=== PATIENT | female | born 1990 | race Caucasian/White ===

== ENCOUNTER → 2021-08-13 15:26 | Outpatient (CLI) | payer OTHER, SELFPAY ==
--- NOTE | ~2021-08-13 | US_ITS ---
US OB <= 14 weeks fetus DATE: 08/13/2021 15:47 INDICATION: age determination, viability confirmation TECHNIQUE: Real-time imaging and Doppler analysis COMPARISON: None FINDINGS: The uterus measures 12.2 cm dimension 7.5 cm AP and 8.8 cm transverse dimension. pole and yolk sac are identified. heart rate of 170 bpm. [place]-rump length averages 4.86 cm, consistent with 11 weeks 5 days +/- 1 week estimated gestational age with JANI of 02/27/2022, compared to 02/25/2022 by LMP. There is an 8 x 15 x 18 mm subchorionic hematoma. The ovaries are not visualized. No pelvic mass or abnormal pelvic fluid collection is detected. IMPRESSION: 8 x 15 x 18 mm subchorionic hematoma Estimated gestational age is 11 weeks 5 days +/- 1 week; JANI: 02/27/2022 Reviewed, dictated and finalized at [facility]. Reviewed, dictated and finalized at location A.
== END ==
PROVIDERS: Visit Provider Student in an Organized Health Care Education/Training Program
DX: O20.8 Other hemorrhage in early pregnancy (principal); Z3A.11 11 weeks gestation of pregnancy
CPT/HCPCS: 76801

== ENCOUNTER 2022-02-28 15:55 | Inpatient (IN) | payer OTHER, SELFPAY ==
[2022-02-28] VITALS (29 sets, daily range): BP systolic 89–119; BP diastolic 48–77; PULSE 61–108; TEMP 36.7; BMI 25.4
--- NOTE | 2022-02-28 15:55 | LDADM ---
This patient, Shania Ruth, was admitted to Labor/Delivery/Recovery 104 on 02/28/22 at 15:55. Plans for labor, pain management and were discussed with patient. Patient/family oriented to hospital policies and general routines including ID bracelet, bed and alarms, visiting hours, pain management, procedures, bathroom and other care routines, personal items, smoking policy, room service/diet and guest tray routines, infant security routines, and visiting hours. Patient/Family are encouraged to report perceived risks to care and to ask questions if they do not understand what they are told or what they should do. See OBIX for further documentation.
[2022-02-28 16:32] LABS: Basophils Percent Auto 0.2 % (0.2-1.2); Eosinophils Percent Auto 0.3 % (0-4.4); Immature Granulocyte Absolute 0.04 K/mm3 (0.00-0.031); Immature Granulocyte Percent A 0.4 % (0-0.5); Lymphocytes Absolute Auto 2.44 K/mm3 (0.9-3.2); Lymphocytes Percent Auto 26.8 % (18.3-44.2); Mean Corpuscular HGB Conc 34.2 g/dl (32-36); Mean Corpuscular Hemoglobin 33.6 pg (26-34); Mean Corpuscular Volume 98.2 fl (80-100); Mean Platelet Volume 9.6 fl (7.4-10.4); Monocytes Absolute Auto 0.7 K/mm3 (0.1-0.6); Monocytes Percent Auto 7.5 % (2.6-8.5); Neutrophils Absolute Auto 5.9 K/mm3 (1.3-6.7); Neutrophils Percent Auto 64.8 % (45.5-73.1); Platelet Count Result 203 k/mm3 (150-375); Red Blood Count 3.87 M/mm3 (4.2-5.4); White Blood Count 9.1 K/mm3 (4.5-10.0)
--- NOTE | 2022-02-28 17:10 | WPDANESEPP ---
Anes - Eval Pre Procedure Procedure: Labor epidural Date/Time: 02/28/22 17:10 Surgeon: Hortencia Preop Diagnosis: Abd pain with contractions Pre Op Diagnosis: induction Patient Data Age: 31 Gender: F Height: 1.78 m Weight: 80.5 kg Last Vital Signs Pulse 108 H 02/28/22 17:01 BP 95/66 L 02/28/22 17:01 O2 Del Method Room Air 02/28/22 16:47 Allergies Allergy/AdvReac Type Severity Reaction Status Date / Time No Known Allergies Allergy Verified 02/10/22 13:29 Home Medications Medication Instructions Recorded Confirmed Type prenat.vits,rogerio,xki-huir-muipk 1 tablet PO DAILY 08/07/21 History ferrous sulfate 325 mg (65 mg 325 mg PO DAILY 11/06/21 02/28/22 History iron) tablet (Feosol) cholecalciferol (vitamin D3) 50 50 mcg PO DAILY 02/10/22 02/28/22 History mcg (2,000 unit) capsule (Vitamin D3) valacyclovir 500 mg tablet 500 mg PO Q12H 02/10/22 02/28/22 History (Valtrex) Laboratory Tests 02/28/22 02/28/22 02/28/22 16:21 16:21 16:21 WBC 9.1 K/mm3 K/mm3 (4.5-10.0) RBC 3.87 M/mm3 L M/mm3 (4.2-5.4) Hgb 13.0 g/dL g/dL (12.0-15.0) Hct 38.0 % % (37.0-47.0) MCV 98.2 fl fl (80-100) MCH 33.6 pg pg (26-34) MCHC 34.2 g/dl g/dl (32-36) RDW 14.0 % % (11.5-14.5) Plt Count 203 k/mm3 k/mm3 (150-375) MPV 9.6 fl fl (7.4-10.4) Immature Gran % (Auto) 0.4 % % (0-0.5) Neut % (Auto) 64.8 % % (45.5-73.1) Lymph % (Auto) 26.8 % % (18.3-44.2) [place] % (Auto) 7.5 % % (2.6-8.5) Eos % (Auto) 0.3 % % (0-4.4) Baso % (Auto) 0.2 % % (0.2-1.2) Lymph # (Auto) 2.44 K/mm3 K/mm3 (0.9-3.2) [place] # (Auto) 0.7 K/mm3 H K/mm3 (0.1-0.6) Eos # (Auto) 0.0 K/mm3 K/mm3 (0-0.3) Baso # (Auto) 0.0 K/mm3 K/mm3 (0.0-0.1) Abs Immat Gran (auto) 0.04 K/mm3 H K/mm3 (0.00-0.031) Absolute Neuts (auto) 5.9 K/mm3 K/mm3 (1.3-6.7) Absolute Nucleated RBC 0.0 K/mm3 K/mm3 (0.0-0.012) Nucleated RBC % 0.0 % % (0.0-0.2) RPR Pending Blood Type O Positive Antibody Screen Pending Patient hx anesthesia problems: none Family hx anesthesia problems: none Results Review: All pre-operative results and documents have been reviewed as part of the pre-operative evaluation. [facility] Past Medical History Medical History (Updated 02/28/22 @ 17:12 by Bharat Smith CRNA) Anxiety and depression History of herpes genitalis History of vaginal delivery Overweight (BMI 25.0-29.9) Post depression and not yet delivered Surgical History Surgical History [place] teeth removed Family History Family History (Updated 02/10/22 @ 13:32 by Leyla Alanis RN) Grandparent Diabetes mellitus Heart disease Stomach cancer Social History Social History Smoking status: Never smoker Second hand tobacco smoke exposure: No Alcohol intake: former Alcohol use details: Not since Substance use: never Spiritual care concerns: No Exam Day of Procedure 02/28/22 17:10 Patient weight: normal Airway: Mallampati scale class II
[2022-02-28] MEDS: miSOPROStol 25 MCG TABLET VAGINAL ×2 (17:18→21:59)
[2022-03-01] VITALS (155 sets, daily range): BP systolic 67–151; BP diastolic 30–87; PULSE 59–195; RESP 16; TEMP 36.1–37.2; O2SAT 85–100
[2022-03-01] MEDS: LACTATED RINGERS 1,000 ML 125 ML IV CONT ×3 (02:29→06:50)
[2022-03-01] MEDS: OXYTOCIN 30 UNITS/NS 500 ML 30 UNITS/500 ML BAG IV CONT (02:30)
[2022-03-01] MEDS: ePHEDrine sulfate INJ 50 MG/ML AMPUL IV PUSH (05:32)
--- NOTE | 2022-03-01 07:33 | WPDOBADMIT ---
Obstetrics - Admit Note Admission Note: record reviewed. No pertinent additions to the history and/or any subsequent changes in the physical findings that are not consistent with the expected course of the were found. Additions to the history and/or subsequent changes in the physical findings follow. None.
--- NOTE | 2022-03-01 07:46 | PM.OBPNLAB ---
Pain Control Date/time seen: 03/01/22 07:30 Pain control: tolerating well and epidural Pelvic Exam Dilation (cm): 8 Effacement (%): 90 station: 0 Contractions Monitor mode: External Contraction frequency: 3 (2-3.5) Contraction duration: 60 (60-80) Contraction pattern: Regular (coupling) Contraction phase: Contraction Contraction intensity: Strong/Firm Status status: Category ll Assessment and Plan Pitocin rate (mU/min): 8 Assessment: induction ongoing Plan: continuous present management Comments: Recommend frequent maternal repositioning. Anticipate vaginal .
[2022-03-01 08:29] LABS: Rapid Plasma Reagin Non-Reactive (NonReactive)
[2022-03-01] MEDS: METHYLERGONOVINE MALEATE 0.2 MG/ML VIAL IM (09:25)
[2022-03-01] MEDS: miSOPROStol 200 MCG TABLET 800 MCG RECTAL (09:37)
[2022-03-01] MEDS: OXYTOCIN 30 UNITS/NS 500 ML 30 UNITS/500 ML BAG 125 UNITS IV CONT ×2 (09:43→10:37)
[2022-03-01] MEDS: SODIUM CHLORIDE 0.9% IV 1,000 ML 999 ML IV CONT (09:55)
[2022-03-01] MEDS: TRANEXAMIC ACID 1,000MG/ISO100 1,000 MG/100 ML BAG 200 MG IVPB (09:55)
[2022-03-01] MEDS: OXYTOCIN 30 UNITS/NS 500 ML 30 UNITS/500 ML BAG 999 UNITS IV CONT (10:08)
[2022-03-01] MEDS: ceFAZolin 2 GM/D5W 50 ML 2 GM/50 ML BAG IVPB (10:20)
--- NOTE | 2022-03-01 10:33 | P.PCNOB_ITS ---
OB - Delivery Note Procedure Delivery date: 03/01/22 Procedure: Events: Elective Induction of Labor Induction method: Per Misoprostol Protocol and Per Pitocin Protocol Delivery augmentation: Pitocin Delivery monitor: External FHT and External Uterine Route of delivery: Episiotomy description: None Laceration Description: Perineal - 2nd Degree Delivery repair: vicryl Specimen: No Quantitative Blood Loss (ml): 1,785 Anesthesia type: Epidural Disposition: Floor Complications: hemorrhage. Narrative: Auto Rental Supervisor called for delivery. Patient complete and +2 station. Began pushing with contractions and made steady progress to . Patient delivered the head and there was excellent restitution followed by the delivery of the remainder of the body. The was placed on the maternal abdomen.The cord was clamped and cut after about 90 seconds of life. There was spontaneous delivery of the placenta in the [place] presentation. A second- degree perineal laceration was repaired in the usual fashion. The fundus remained firm but there were intermittent gushes of blood noted. A bimanual exam revealed a few clots in the lower uterine segment. These were manually removed. The vagina and cervix were thoroughly inspected and no additional lacerations were noted. Fundal massage continued and vaginal bleeding was brisk with clots. IM Methergine and [place] Cytotec were given. TXA was Also given. Dr. Burnett was called to the bedside. examined the vaginal vault, cervix, and uterus. No additional repairs were made. There was adequate hemostasis at this point. Baby Date of : 03/01/22 Time of : 09:14 Weeks of gestation at delivery: 40 Infant gender: Female Weight (pounds): 7 Weight (ounces): 8 presentation: vertex position: Right Occiput Anterior Placenta delivery description: Spontaneous Cord Vessel Description: 3 Vessels score one minute: 9 score five minutes: 9
[2022-03-01 10:34] LABS: Basophils Percent Auto 0.2 % (0.2-1.2); Hematocrit 37.7 % (37.0-47.0); Hemoglobin 12.7 g/dL (12.0-15.0); Immature Granulocyte Absolute 0.05 K/mm3 (0.00-0.031); Immature Granulocyte Percent A 0.4 % (0-0.5); Lymphocytes Absolute Auto 1.55 K/mm3 (0.9-3.2); Lymphocytes Percent Auto 11.8 % (18.3-44.2); Mean Corpuscular HGB Conc 33.7 g/dl (32-36); Mean Corpuscular Hemoglobin 33.2 pg (26-34); Mean Corpuscular Volume 98.7 fl (80-100); Mean Platelet Volume 9.6 fl (7.4-10.4); Monocytes Absolute Auto 0.7 K/mm3 (0.1-0.6); Monocytes Percent Auto 5.4 % (2.6-8.5); Neutrophils Absolute Auto 10.8 K/mm3 (1.3-6.7); Neutrophils Percent Auto 82.2 % (45.5-73.1); Platelet Count Result 174 k/mm3 (150-375); Red Blood Count 3.82 M/mm3 (4.2-5.4); Red Cell Distribution Width 13.8 % (11.5-14.5); White Blood Count 13.2 K/mm3 (4.5-10.0)
[2022-03-01 10:46] LABS: INR 1.1; Prothrombin Time 13.4 Seconds (11.1-14.7)
[2022-03-01 10:48] LABS: Fibrinogen 310 mg/dl (215-510); Partial Thromboplastin Time 27.2 SECONDS (22.3-36.8)
--- NOTE | 2022-03-01 10:53 | PM.OBDSVD ---
DS: Admitting Diagnosis Discharge Date 03/03/22 Admitting Diagnosis Induction of labor Anemia-resolved HSV2 Anxiety Resolved IUGR DS: Discharge Diagnosis Discharge Diagnosis (1) History of herpes genitalis: Code(s): Z86.19 - Personal history of other infectious and parasitic diseases Status: Acute (2) Mother currently breast-feeding: Code(s): Z39.1 - Encounter for care and examination of lactating mother Status: Acute (3) (normal spontaneous vaginal delivery): Code(s): O80 - Encounter for full-term uncomplicated delivery Status: Acute (4) hemorrhage: Code(s): O72.1 - Other immediate hemorrhage Status: Acute OB - DS: Summary Hospital Course Hospital Course: Complicated by hemorrhage OB Procedures : Ultrasound OB Procedures Intrapartum: Spontaneous Vag Delivery and Other (PPH) OB Procedures: : None Peripartum Data Infant Delivery Method: Natural Vaginal Laceration Description: Perineal - 2nd Degree Episiotomy description: None complications: other (hemorrhage) Status at Discharge Functional status at discharge: independent ambulation Overall status at discharge: patient is progressing back to baseline Time Spent with Patient Time attestation: Total time spent providing and/or coordinating discharge services: Exam Narrative: Alert and oriented. Mood is pleasant and cooperative. Urinating without difficulty. Denies passing any large clots. Perineum with minimal edema. Const: General: healthy appearing, no acute distress and alert Orientation/consciousness: patient oriented x3 Limitations: no limitations Resp: Effort & Inspection: normal respiratory effort Auscultation: clear to auscultation bilaterally Cardio: Rate: regular rate GI: Inspection: normal to inspection Neuro: General: patient oriented x3 Extrem: General: normal to inspection Psych: Appearance: grossly normal Mental Status: mental status grossly normal Affect: normal affect Thought process: Normal thought process present DS: Data Data Completed and Pending Labs on day of discharge: Labs from last 24 hours 03/01/22 03/01/22 02/28/22 10:27 10:27 16:21 WBC 13.2 H RBC 3.82 L Hgb 12.7 Hct 37.7 MCV 98.7 MCH 33.2 MCHC 33.7 RDW 13.8 Plt Count 174 MPV 9.6 Immature Gran % (Auto) 0.4 Neut % (Auto) 82.2 H Lymph % (Auto) 11.8 L [place] % (Auto) 5.4 Eos % (Auto) 0.0 Baso % (Auto) 0.2 Lymph # (Auto) 1.55 [place] # (Auto) 0.7 H Eos # (Auto) 0.0 Baso # (Auto) 0.0 Abs Immat Gran (auto) 0.05 H Absolute Neuts (auto) 10.8 H Absolute Nucleated RBC 0.0 Nucleated RBC % 0.0 PT Pending INR Pending APTT Pending Fibrinogen Pending D-Dimer Pending RPR Blood Type O Positive Antibody Screen Negative 02/28/22 02/28/22 16:21 16:21 WBC 9.1 RBC 3.87 L Hgb 13.0 Hct 38.0 MCV 98.2 MCH 33.6 MCHC 34.2 RDW 14.0 Plt Count 203 MPV 9.6 Immature Gran % (Auto) 0.4 Neut % (Auto) 64.8 Lymph % (Auto) 26.8 [place] % (Auto) 7.5 Eos % (Auto) 0.3 Baso % (Auto) 0.2 Lymph # (Auto) 2.44 [place] # (Auto) 0.7 H Eos # (Auto) 0.0 Baso # (Auto) 0.0 Abs Immat Gran (auto) 0.04 H Absolute Neuts (auto) 5.9 Absolute Nucleated RBC 0.0 Nucleated RBC % 0.0 PT INR APTT Fibrinogen D-Dimer RPR Non-reactive Blood Type Antibody Screen Discharge Plan Discharge Attending physician on discharge: Layla Burnett Discharging Clinician: Rayne Reyes Anticipated Discharge Date/Time: 03/01/22 10:55 Patient Disposition: Home, Self-Care Activity: may shower Diet: as tolerated and regular Patient Instructions: Antibiotic Form Stand Alone Forms: General Discharge Information Follow-up/Referrals: Rayne Reyes, YAIMA [Certified Nurse Curing Supervisor] - (6 week visit
[2022-03-01 11:10] LABS: D Dimer 2.66 ug/mL (<0.48)
[2022-03-01] MEDS: LACTATED RINGERS 1,000 ML 125 ML IVPB (11:23)
--- NOTE | 2022-03-01 14:31 | OBPPTRN ---
1356 Patient transferred to post room #291 via W/C. Support person present. Oriented to unit, room, information board, rooming in, admission packet and security measures. Patient verbalizes understanding.
[2022-03-01] MEDS: METHYLERGONOVINE MALEATE 0.2 MG TABLET PO ×2 (15:29→21:53)
[2022-03-01 17:16] LABS: Basophils Percent Auto 0.2 % (0.2-1.2); Eosinophils Percent Auto 0.1 % (0-4.4); Hematocrit 34.6 % (37.0-47.0); Hemoglobin 11.7 g/dL (12.0-15.0); Immature Granulocyte Absolute 0.05 K/mm3 (0.00-0.031); Immature Granulocyte Percent A 0.4 % (0-0.5); Lymphocytes Absolute Auto 1.83 K/mm3 (0.9-3.2); Mean Corpuscular HGB Conc 33.8 g/dl (32-36); Mean Corpuscular Hemoglobin 33.7 pg (26-34); Mean Corpuscular Volume 99.7 fl (80-100); Mean Platelet Volume 9.6 fl (7.4-10.4); Monocytes Absolute Auto 0.8 K/mm3 (0.1-0.6); Monocytes Percent Auto 6.2 % (2.6-8.5); Neutrophils Absolute Auto 10.3 K/mm3 (1.3-6.7); Neutrophils Percent Auto 79.1 % (45.5-73.1); Platelet Count Result 155 k/mm3 (150-375); Red Blood Count 3.47 M/mm3 (4.2-5.4); Red Cell Distribution Width 13.7 % (11.5-14.5); White Blood Count 13.1 K/mm3 (4.5-10.0)
[2022-03-01] MEDS: IBUPROFEN 600 MG TABLET PO (19:42)
[2022-03-02 01:12] VITALS: BP 98/61; PULSE 62; RESP 16; TEMP 36.7; O2SAT 98
[2022-03-02 04:40] VITALS: BP 99/62; PULSE 68; RESP 16; TEMP 36.9; O2SAT 97
[2022-03-02] MEDS: METHYLERGONOVINE MALEATE 0.2 MG TABLET PO ×2 (04:45→11:06)
[2022-03-02 06:32] LABS: Basophils Percent Auto 0.3 % (0.2-1.2); Eosinophils Absolute Auto 0.1 K/mm3 (0-0.3); Eosinophils Percent Auto 0.5 % (0-4.4); Hematocrit 33.1 % (37.0-47.0); Immature Granulocyte Absolute 0.03 K/mm3 (0.00-0.031); Immature Granulocyte Percent A 0.3 % (0-0.5); Lymphocytes Absolute Auto 2.27 K/mm3 (0.9-3.2); Lymphocytes Percent Auto 24.4 % (18.3-44.2); Mean Corpuscular HGB Conc 33.2 g/dl (32-36); Mean Corpuscular Hemoglobin 33.2 pg (26-34); Mean Platelet Volume 10.1 fl (7.4-10.4); Monocytes Absolute Auto 0.7 K/mm3 (0.1-0.6); Monocytes Percent Auto 7.2 % (2.6-8.5); Neutrophils Absolute Auto 6.3 K/mm3 (1.3-6.7); Neutrophils Percent Auto 67.3 % (45.5-73.1); Platelet Count Result 164 k/mm3 (150-375); Red Blood Count 3.31 M/mm3 (4.2-5.4); Red Cell Distribution Width 13.7 % (11.5-14.5); White Blood Count 9.3 K/mm3 (4.5-10.0)
[2022-03-02 08:30] VITALS: BP 106/67; PULSE 72; RESP 16; TEMP 36.6; O2SAT 100
--- NOTE | 2022-03-02 08:41 | WPDANLDPN2 ---
Anes-Prog Note L&D Date/Time: 03/02/22 08:41 Comfortable throughout: labor and delivery Neuraxial method: epidural Epidural/Spinal procedure site: clean & non-tender Neuro status: Neuro function grossly intact. Cardiovascular status: normal Respiratory status: normal Airway patency: baseline Mental status: baseline Post-Op hydration status: normal Vital Signs: Last Vital Signs Temp 36.9 C 03/02/22 04:40 Pulse 68 03/02/22 04:40 Resp 16 03/02/22 04:40 BP 99/62 L 03/02/22 04:40 Pulse Ox 97 03/02/22 04:40 O2 Del Method Room Air 03/01/22 19:50 Pain score (VAS): 2/10 Post-procedural complaints: none Patient feedback: Patient satisfied with anesthetic care.
--- NOTE | 2022-03-02 09:17 | PC.NURSE ---
[id number] Consulted with mother to check in to see how her experience has been so far and make a plan for the day. Father of baby is present. Infant is not latching effectively yet but makes efforts according to mother. Mother chooses to continue to hand express colostrum and feed it to her infant. Mother voiced having almost 4 teaspoons for her infant at 0815. Mother plans to use her electric pump at home and try bottle feeding but is fine with spoon feeding and attempting to breastfeed for now. Mother voiced understanding to call if her doesn't wake to feed or if she would like assistance attempting to latch her infant today. Reported to primary RN.
--- NOTE | 2022-03-02 10:45 | P.PNOB_ITS ---
OB - PN: Subj Subjective Date/time seen: 03/02/22 0800 Patient comments: pain well controlled baby status: doing well and other ( not latching well. Pt is hand expressing and spoon feeding baby. ) [place] feeding status: exclusively breast feeding OB - PN: Obj Data Labs CBC & Chem 7: 03/02/22 04:58 Labs: Laboratory Results - last 24 hr 03/01/22 03/01/22 03/02/22 10:27 17:03 04:58 WBC 13.1 H 9.3 RBC 3.47 L 3.31 L Hgb 11.7 L 11.0 L Hct 34.6 L 33.1 L MCV 99.7 100.0 MCH 33.7 33.2 MCHC 33.8 33.2 RDW 13.7 13.7 Plt Count 155 164 MPV 9.6 10.1 Immature Gran % (Auto) 0.4 0.3 Neut % (Auto) 79.1 H 67.3 Lymph % (Auto) 14.0 L 24.4 [place] % (Auto) 6.2 7.2 Eos % (Auto) 0.1 0.5 Baso % (Auto) 0.2 0.3 Lymph # (Auto) 1.83 2.27 [place] # (Auto) 0.8 H 0.7 H Eos # (Auto) 0.0 0.1 Baso # (Auto) 0.0 0.0 Abs Immat Gran (auto) 0.05 H 0.03 Absolute Neuts (auto) 10.3 H 6.3 Absolute Nucleated RBC 0.0 0.0 Nucleated RBC % 0.0 0.0 PT 13.4 INR 1.1 APTT 27.2 Fibrinogen 310 D-Dimer 2.66 H OB - PN A/P Plan day: 1 Plan: discharge home Comments: Pt strongly desires discharge home. Time Spent With Patient Time: Total time spent is greater than 50% in coordination of care (as documented) at patient's floor/unit and/or counseling patient: Time with patient: 15 - 25 minutes Review of Systems Review of Systems: All systems reviewed & are unremarkable except as noted in HPI and below Exam Narrative: Alert and oriented. Mood is pleasant and cooperative. Urinating without difficulty. Denies passing any large clots. Perineum with minimal edema. Const: General: healthy appearing, no acute distress and alert Orientation/consciousness: patient oriented x3 Limitations: no limitations Resp: Effort & Inspection: normal respiratory effort Auscultation: clear to auscultation bilaterally Cardio: Rate: regular rate GI: Inspection: normal to inspection Neuro: General: patient oriented x3 Extrem: General: normal to inspection Psych: Appearance: grossly normal Mental Status: mental status grossly normal Affect: normal affect Thought process: Normal thought process present
[2022-03-02] MEDS: IBUPROFEN 600 MG TABLET PO (12:27)
--- NOTE | 2022-03-02 15:52 | PC.NURSE ---
1520 - Mother led the conversation with her experience and plan to feed her so far and her ability to feed her infant. Mother states she will continue to attempt to breastfeed her , if infant doesn't latch she will hand express and spoon feed her . Reminded parents to use good handwashing technique to prevent infection. Mother is feeding appropriately for growth of and understands stimulating to eat if needed. Infant has had appropriate feedings in the last 24 hours meets the outcomes for weight, output and jaundice at this time. Mother states she is confident to continue feeding her at home, declines formula, plans to initiate pumping at home and bottle feed with breast milk understanding when to call for assistance, and any need for additional assistance or education at this time. Reinforced understanding of milk production (as it could be delayed from her blood loss), transition of milk, signs of adequate intake, prevention/relief of engorgement, responsive after visualizing feeding cues, the different methods of stimulating infant to breastfeed 2-3 hours after the start of the last feeding, community resources, medication information reviewed per [employer] and when to call a provider using the resource of the mom and baby guide/[facility] website. Mother voiced understanding of the education shared. Reported to the primary RN.
--- NOTE | 2022-03-02 20:30 | PC.NURSE ---
1500 Patient was given the opportunity to view the discharge video Mother & Baby Care, The First Two Weeks and to ask questions. Patient declined viewing the video and has been given the mother/baby guide for home reference.
[2022-03-03 10:06] VITALS: BP 110/63; PULSE 88; RESP 20; TEMP 37; O2SAT 99
== END 2022-03-02 17:19 | disposition home or self-care (01) | DRG 806 ==
LOC: ANHLDR 03-01 10:56 → ANHOB2 03-01 14:02
PROVIDERS: Advanced Practice Midwife; Admitting Provider Obstetrics & Gynecology Gynecology; Visit Provider Obstetrics & Gynecology Gynecology
DX: O98.32 Other infections with a predominantly sexual mode of transmission complicating childbirth (principal); O72.1 Other immediate postpartum hemorrhage; Z37.0 Single live birth; Z3A.40 40 weeks gestation of pregnancy; A60.09 Herpesviral infection of other urogenital tract; O36.8330 Maternal care for abnormalities of the fetal heart rate or rhythm, third trimester, not applicable or unspecified; O70.1 Second degree perineal laceration during delivery
CPT/HCPCS: 36415; 85025; 85380; 85384; 85610; 85730; 86592; 86850; 86900; 86901; A9270; J0690; J2210; J2590; J2795; J7030; J7120

== ENCOUNTER 2023-08-02 15:39 | Outpatient (CLI) | payer OTHER, SELFPAY ==
--- NOTE | ~2023-08-02 | US_ITS ---
EXAMINATION: US soft tissue pelvic DATE: 08/02/2023 16:50 INDICATION: Pelvic mass. TECHNIQUE: Multiple transabdominal sonographic images of the pelvis were obtained. COMPARISON: None. FINDINGS: In the patient's area of concern in the anterior pelvis, there is a 1.0 x 0.2 x 0.6 cm hypoechoic sub cutaneous mass. IMPRESSION: 1. 1.0 cm hypoechoic subcutaneous mass in the anterior pelvis. This finding is nonspecific and may be inflammation, scarring, a normal lymph node, peripheral nerve sheath tumor, or other benign mass. Reviewed, dictated and finalized at location A.
== END 2023-08-02 15:40 | disposition home or self-care (01) ==
PROVIDERS: Visit Provider Nurse Practitioner
DX: R19.09 Other intra-abdominal and pelvic swelling, mass and lump (principal)
CPT/HCPCS: 76857

== ENCOUNTER 2023-12-08 16:15 | Outpatient (CLI) | payer OTHER, SELFPAY ==
--- NOTE | ~2023-12-08 | US_ITS ---
Pelvic ultrasound. Clinical History: First trimester , assess for dates and viability Technique: Realtime transabdominal and transvaginal scanning of the pelvis was performed. Color flow Doppler and Doppler spectral analysis were performed. Findings: The uterus is anteverted, and contains an intrauterine gestation.. Placenta anteriorly loca rufina. [place]-rump length of 5.7 cm corresponds to an estimated gestational age of 12 weeks 2 days. Feta l heart rate is 161 bpm. Neither ovary seen. No adnexal mass seen. There is no evidence of free fluid in the cul de sac. Impression: Live intrauterine gestation, with estimated gestational age of 12 weeks 2 days. heart rate is 1 61 bpm. Reviewed, dictated and finalized at location . Impression: Live intrauterine gestation, with estimated gestational age of 12 weeks 2 days. heart rate is 161 bpm.
== END 2023-12-08 16:16 | disposition home or self-care (01) ==
PROVIDERS: Visit Provider Advanced Practice Midwife
DX: O36.80X0 Pregnancy with inconclusive fetal viability, not applicable or unspecified (principal); Z3A.00 Weeks of gestation of pregnancy not specified
CPT/HCPCS: 76801

== ENCOUNTER 2024-02-01 09:16 | Outpatient (CLI) | payer OTHER, SELFPAY ==
--- NOTE | ~2024-02-01 | US_ITS ---
EXAMINATION: US OB /maternal detail DATE: 02/01/2024 11:18 INDICATION: anatomic survey. TECHNIQUE: Real-time ultrasound of the pelvis was performed. COMPARISON: Ultrasound 12/08/2023 FINDINGS: There is a single living fetus in variable presentation. The placenta is anterior. The cervical mati th is 3.6 cm on transabdominal images, which is normal. heart rate is 150 beats per minute (bpm ). The amniotic fluid index is 11.5 cm, which is normal. The following biometric data were obtained: Biparietal diameter (BPD): 4.4 cm; head circumference (HC): 17.3 cm; abdominal circumference (AC): 14 .5 cm; femur length (FL): 3.0 cm. These measurements are concordant. Estimated weight is 302 g +/- 45 g, which correlates with the 47th percentile when 06/23/24 is u sed as estimated date of delivery. As single measurements, these parameters are each equal to the following estimated gestational ages: BPD: 19 weeks 3 days. HC: 19 weeks 6 days. AC: 19 weeks 6 days. FL: 19 weeks 2 days. estimated gestational age based solely on measurements from this exam is 19 weeks 4 days +/- 1 weeks 3 days. The cerebral ventricles, cerebellum, cisterna magna, nuchal fold, lip, and spine are normal. The hear t is normal. The diaphragm, stomach, kidneys, and bladder are normal. There are two umbilical arterie s to yield a 3-vessel cord. The cord insertion is normal. IMPRESSION: 1. Single living fetus in variable presentation. 2. Estimated weight is 302 g +/- 45 g, which correlates with the 47th percentile when 06/23/24 is used as estimated date of delivery. 3. Normal anatomic survey. Reviewed, dictated and finalized at location A. IMPRESSION: 1. Single living fetus in variable presentation. 2. Estimated weight is 302 g +/- 45 g, which correlates with the 47th pe rcentile when 06/23/24 is used as estimated date of delivery. 3. Normal anatomic survey.
== END 2024-02-01 09:17 | disposition home or self-care (01) ==
LOC: ANHIMG 09:21
PROVIDERS: Visit Provider Advanced Practice Midwife
DX: Z36.9 Encounter for antenatal screening, unspecified (principal); Z3A.19 19 weeks gestation of pregnancy
CPT/HCPCS: 76805

== ENCOUNTER 2024-07-01 01:29 | Inpatient (IN) | payer BC, SELFPAY ==
[2024-07-01] VITALS (13 sets, daily range): BP systolic 98–148; BP diastolic 48–95; PULSE 50–92; RESP 14–18; TEMP 36.2–37; O2SAT 97–100; BMI 25.9
--- OUTSIDE RECORDS SUMMARY | 2024-07-01 01:54 | XMS_ITS | Data Portability ---
Author Organization [facility] Address [address] [place] [address] [place] [address] Assessment Encounter Date Assessment Date Assessment LastModified by Organization Details LastModified Time 06/06/2024 06/06/2024 Patient is _37__weeks . Discussed plan. [email or web address] Not available 06/06/2024 11:37:37 06/20/2024 06/20/2024 Patient is _39__weeks . Discussed plan. Not available 06/20/2024 11:56:30 06/27/2024 06/27/2024 Patient is _40__weeks . Discussed plan. [email or web address] Not available 06/27/2024 12:30:20 Plan of Treatment Reminders Order Date Submit Date Provider Last Modified By Organization Details Last Modified Time Details Appointments U/S OB BPP 2024 12:30P M ULTRASOUND Not available Not available Not available NST 2024 01:00P M NST SCHEDULE Not available Not available Not available INDUCTI ON 2024 06:00A M Lulu Kenney CNM Not available Not available Not available Lab None recorde d. Referral None recorde d. Procedures None recorde d. Surgeries None recorde d. Imaging non-str ess test 2024 025 [email or web address] [address], [address], [place], [address], 06/29/2024 17:08:17 US, obstetr ic, biophys ical profile + non-str ess test 2024 025 [email or web address] [address], [address], [place], [address], 06/28/2024 00:29:06 Medication Orders None recorde d. Patient TargetsNo targets recorded. Patient InstructionsNo instructions recorded. Reason for Referral None Reported. Results Created Date Observation Date Name Description Value Unit Range Abnormal Flag Note LastModifiedBy Organization Detail LastModifiedTime 05/21/19 25 05/21/2024 CBC (HEMO GRAM) WBC 9.7 10'3/ uL 3.5-10 .5 Not Available [facility] (Lab) [address], [place], [address], 05/22/2024 03:53:46 05/21/19 25 05/21/2024 CBC (HEMO GRAM) RBC 3.85 10'6/ uL (based on docume nted legal sex) 3.80-5 .20 Not Available [facility] (Lab) [address], [place], [address], 05/22/2024 03:53:46 05/21/19 25 05/21/2024 CBC (HEMO GRAM) HGB 12.0 g/dL (based on docume nted legal sex) 11.6-1 5.4 Not Available [facility] (Lab) [address] [place], [address], 05/22/2024 03:53:46 05/21/19 25 05/21/2024 CBC (HEMO GRAM) HCT 36.5 % (based on docume nted legal sex) 34.0-4 5.0 Not Available [facility] (Lab) [address] [place], [address], 05/22/2024 03:53:46 05/21/19 25 05/21/2024 CBC (HEMO GRAM) MCV 94.8 fL 80.0-9 9.0 Not Available [facility] (Lab) [address] [place], [address], 05/22/2024 03:53:46 05/21/19 25 05/21/2024 CBC (HEMO GRAM) MCH 31.2 pg 27.0-3 4.0 Not Available [facility] (Lab) [address], [place], [address], 05/22/2024 03:53:46 05/21/19 25 05/21/2024 CBC (HEMO GRAM) MCHC 32.9 g/dL 32.0-3 5.5 Not Available [facility] (Lab) [address], [place], [address], 05/22/2024 03:53:46 05/21/19 25 05/21/2024 CBC (HEMO GRAM) RDW 13.8 % 11.0-1 5.0 Not Available [facility] (Lab) [address], [place], [address], 05/22/2024 03:53:46 05/21/19 25 05/21/2024 CBC (HEMO GRAM) plt 250 10'3/ uL 150-40 0 Not Available [facility] (Lab) [address], [place], [address], 05/22/2024 03:53:46 05/21/19 25 05/21/2024 CBC (HEMO GRAM) MPV 9.8 fL 8.8-12 .1 Refer ence range s for nonbi nary/ inter sex or unspe cifie d gende r patie nts have not been estab lishe d. [facility] for range s estab lishe d for cisge nder patie nts and evalu ate in the clini rogerio shyam xt of the indiv idual patie nt: [email or web address] :[email or web address] carl book. nm.or g/Gen derX Not Available [facility] (Lab) [address], [place], [address], 05/22/2024 03:53:46 05/21/19 25 05/21/2024 CT/GC AND TRICH OMONA S VAGIN SOFI (RRNA ), URINE chlamydia trachomatis, PCR Negati ve negati ve Not Available [facility] (Lab) [address], [place], [address], 05/24/2024 15:24:35 05/21/19 25 05/21/2024 CT/GC AND TRICH OMONA S VAGIN SOFI (RRNA ), URINE neisseria gonorrhoeae, PCR Negati ve negati ve Not Available [facility] (Lab) [address], [place], [address], 05/24/2024 15:24:35 05/21/19 25 05/21/2024 CT/GC AND TRICH OMONA S VAGIN SOFI (RRNA ), URINE trichomonas vaginalis ribosomal RNA (rrna) Negati ve negati ve Not Available [facility] (Lab) [address], [place], [address], 05/24/2024 15:24:35 05/21/19 25 05/21/2024 CULTU RE: URINE result report SEE RESULT S BELOW Test: Cultu re: Urine Speci men Sourc e: Urine - Clean Catch Speci men Type: Urine Speci men Date: 2024 1110 Resul t Date: 2024 0359 Resul t Statu s: Final resul t Abnor mal: No Resul ting Lab: [facility] [address] [facility] [address] Tel: CULTU RE ----- ----- ----- --- No growt h in 1 day (dete ction level of 10,00 0 colon ies / ml.) Not Available [facility] (Lab) [address], [place], [address], 05/24/2024 15:24:36 05/21/19 25 05/21/2024 CULTU RE: GROUP B STREP SCREE N, REFLE X SUSCE PTIBI LITY result report SEE RESULT S BELOW Test: Cultu re: Group B Strep , Refle x Susce ptibi lity ([facility] ) Speci men Sourc e: Vagin a/Rec demetris Speci men Type: Vagin al/Re ctal Speci men Date: 2024 1110 Resul t Date: 2024 1419 Resul t Statu s: Final resul t Abnor mal: No Resul ting Lab: [facility] [address] [facility] [address] Tel: CULTU RE ----- ----- ----- --- No Group B strep isola rufina at 2 days (saima ctive broth enhan cemen t) Not Available [facility] (Lab) [address], [place], [address], 05/24/2024 15:24:36 05/21/19 25 05/21/2024 drug scree n, urine Amphetamines : negati ve Not Available [facility] [address], [place], [address], 05/21/2024 11:46:51 05/21/19 25 05/21/2024 drug scree n, urine Cannabinoids : negati ve Not Available [facility] [address], [place], [address], 05/21/2024 11:46:51 05/21/19 25 05/21/2024 drug scree n, urine Cocaine: negati ve Not Available [facility] [address], [place], [address], 05/21/2024 11:46:51 05/21/19 25 05/21/2024 drug scree n, urine Opiates: negati ve Not Available [facility] [address], [place], [address], 05/21/2024 11:46:51 05/21/19 25 05/21/2024 drug scree n, urine Phenocyclidi ne: negati ve Not Available [facility] [address], [place], [address], 05/21/2024 11:46:51 05/21/19 25 05/21/2024 drug scree n, urine Barbiturates : negati ve Not Available [facility] [address], [place], [address], 05/21/2024 11:46:51 05/21/19 25 05/21/2024 drug scree n, urine Benzodiazepi hang: negati ve Not Available [facility] [address], [place], [address], 05/21/2024 11:46:51 05/21/19 25 05/21/2024 drug scree n, urine Ethanol: negati ve Not Available [facility] [address], [place], [address], 05/21/2024 11:46:51 05/21/19 25 05/21/2024 drug scree n, urine Hallucinogen s: negati ve Not Available [facility] [address], [place], [address], 05/21/2024 11:46:51 05/21/19 25 05/21/2024 drug scree n, urine Inhalants: negati ve Not Available [facility] [address], [place], [address], 05/21/2024 11:46:51 05/21/19 25 05/21/2024 drug scree n, urine Anabolic Steroids: negati ve Not Available [facility] [address], [place], [address], 05/21/2024 11:46:51 05/21/19 25 05/21/2024 drug scree n, urine Other: negati ve Not Available [facility] [address], [place], [address], 05/21/2024 11:46:51 06/27/19 25 06/27/2024 US, obste tric, bioph ysica l profi le + non-s tress test No observ ation record ed. [email or web address] [address], [place], [address], 06/27/2024 11:13:22 06/27/19 25 06/27/2024 US, obste tric, bioph ysica l profi le + non-s tress test No observ ation record ed. [email or web address] [address], [place], [address], 06/28/2024 01:14:31 06/29/1906/27/2024 non-s tress test No observ ation record ed. [email or web address] [address] [address], [place], [address], 06/29/2024 17:07:19 06/29/1906/27/2024 non-s tress test No observ ation record ed. [email or web address] Not Available 06/29 18:31:13 Result Notes None recorded. Problems Name Problem SNOMED Code Status Onset Date Resolution Date Notes Provider Name and Address Organization Details Recorded Time 05284156 Active 2024 Layla algeria, [facility] 11:37:48 Postpartu m hemorrhag e 79794624 Active X2, did not require transfusi on Conrad Villela MD [address], [place], [address], [facility] 5 12:00:06 Herpes simplex 01576261 Active 2024 Layla alegria, [facility] 11:00:09 Anxiety 48986674 Active Conrad Villela MD [address], [place], [address], [facility] 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 5 11:00:03 Herpes simplex 01388374 Active 2024 Layla alegria [facility] 5 11:00:09 Problem Notes None recorded. Procedures Surgical History Date Name Laterality Status Provider Name and Address Organization Details Recorded Time 3 Date of Last Pap Smear completed Layla Shirley [facility] 06/03/2024 14:23:53 1 extraction of wisdom tooth completed Laylarajinder Shirley [facility] 05/21/2024 11:43:16 Imaging Results Imaging Date Name Status LastModified by Organiz ation Details LastModified Time 06/27/2024 US, obstetric, biophysical profile + non-stress test completed [email or web address] [place] [address], [place], [address], 06/27/2024 11:13:22 06/27/2024 US, obstetric, biophysical profile + non-stress test active [email or web address] [address], [place], [address], 06/28/2024 01:14:31 06/27/2024 non-stress test completed [email or web address] [facility] [address], [place], [address], 06/29/2024 17:07:19 06/27/2024 non-stress test completed [email or web address] Informati on not available 06/29/2024 18:31:13 Procedure Notes None recorded. Medical Equipment None Reported. Allergies No known drug allergies Medications Name Sig Start Date Stop Date Status Note LastModified by Organization Details LastModified Time valacyclovir 500 mg tablet Take 1 tablet every day by oral route. active Not Available Not Available No t Available Vitals Date Recorded Body height Body mass index (BMI) Body weight Systolic blood pressure Diastolic blood pressure Provider Name and Address Organization Details Last Updated DateTime 06/06/2024 175.26 cm 27 kg/m2 48213.40 371 g 119 mm[Hg] 73 mm[Hg] Layla Shirley [facility] 10:59:08 Date Recorded Body height Body mass index (BMI) Body weight Systolic blood pressure Diastolic blood pressure Provider Name and Address Organization Details Last Updated DateTime 06/20/2024 175.26 cm 27.5 kg/m2 05591.18 082 g 111 mm[Hg] 68 mm[Hg] Layla Shirley [facility] 11:14:49 Date Recorded Body weight Body mass index (BMI) Body height Body height Body mass index (BMI) Body weight Systolic blood pressure Diastolic blood pressure Systolic blood pressure Diastolic blood pressure Provider Name and Address Organization Details Last Updated DateTime 58230.9 5793 g 27.9 kg/m2 175.26 cm 175.26 cm 27.9 kg/m2 23717.9 6 g 119 mm[Hg] 76 mm[Hg] 119 mm[Hg] 76 mm[Hg] Layla Shirley [facility] 17:04:32 Social History Question Answer Notes LastModified by Organizat ion Details LastModified Time Tobacco Smoking Status Never Smoker Layla Shirley [facility] 05/21/2024 11:42:57 Do You Have An Advance Directive? No [email or web address] Information not available 05/21/2024 What Is Your Level Of Alcohol Consumption? None [email or web address] Information not available 05/21/2024 If You Are , What Was Your Level Of Alcohol Consumption Prior To ? Occasional [email or web address] Information not available 05/21/2024 Are You Blind Or Do You Have Difficulty Seeing? No [email or web address] Information not available 05/21/2024 What Is Your Level Of Caffeine Consumption? Moderate Information not available 05/21/2024 How Much Tobacco Do You Chew? None [email or web address] Information not available 05/21/2024 In The 14 Days Before Symptom Onset, Have You Had Close Contact With A Laboratory-confir med COVID-19 While That Case Was Ill? No [email or web address] Information not available 05/21/2024 In The 14 Days Before Symptom Onset, Have You Had Close Contact With A Person Who Is Under Investigation For COVID-19 While That Person Was Ill? No [email or web address] Information not available 05/21/2024 Have You Been To An Area Known To Be High Risk For COVID-19? No [email or web address] Information not available 05/21/2024 Are You Deaf Or Do You Have Serious Difficulty Hearing? No [email or web address] Information not available 05/21/2024 What Type Of Diet Are You Following? REGULAR [email or web address] Information not available 05/21/2024 What Is The Highest Grade Or Level Of School You Have Completed Or The Highest Degree You Have Received? FN60002-2 [email or web address] Information not available 05/21/2024 What Is Your Occupation? Stay At Home Mom [email or web address] Information not available 05/21/2024 Are There Any Guns Present In Your Home? No [email or web address] Information not available 05/21/2024 Do You Use Protection During Sex? No [email or web address] Information not available 05/21/2024 Do You Use Your Seat Belt Or Car Seat Routinely? Yes [email or web address] Information not available 05/21/2024 Do You Have Smoke And Carbon Monoxide Detectors In Your Home? Yes [email or web address] Information not available 05/21/2024 How Much Tobacco Do You Smoke? No [email or web address] Information not available 05/21/2024 Do You Feel Stressed (tense, Restless, Nervous, Or Anxious, Or Unable To Sleep At Night)? [id number] Information not available 05/21/2024 Do You Use Any Illicit Or Recreational Drugs? No [email or web address] Information not available 05/21/2024 Do You Use Sunscreen Routinely? Yes [email or web address] Information not available 05/21/2024 Have You Used IV Drugs? No [email or web address] Information not available 05/21/2024 Do You Or Have You Ever Used Any Other Forms Of Tobacco Or Nicotine? No [email or web address] Information not available 05/21/2024 Sex: Unknown Functional Status Question Answer Note LastModified by Organizat ion Details LastModified Time Do you have difficulty walking or climbing stairs? No [email or web address] Information not available 05/21/2024 Are you able to walk? YESWOREST [email or web address] Information not available 05/21/2024 Are you able to care for yourself? Yes [email or web address] Information not available 05/21/2024 Do you have difficulty dressing or bathing? No [email or web address] Information not available 05/21/2024 What is your exercise level? Moderate [email or web address] Information not available 05/21/2024 Mental Status None recorded. Family History Relationship Description Onset Age of this Age Resolved Age Notes LastModified by Organization Details LastModified Time Unspecified Relation Family history unknown [email or web address] Not available 06/03 10:03:28 Paternal Grandmother Diabetes mellitus [email or web address] Not available 06/03 13:49:23 Paternal Grandmother Hypertensive disorder [email or web address] Not available 06/03 13:49:49 Paternal Grandfather Coronary arterioscler osis [email or web address] Not available 06/03 10:03:28 Paternal Grandfather Hypertensive disorder [email or web address] Not available 06/03 13:49:49 Maternal Uncle Malignant neoplastic disease [email or web address] Not available 06/03 13:50:31 Maternal Grandmother Malignant tumor of stomach [email or web address] Not available 06/03 10:03:28 Medical History Condition Response Allergies (Food, seasonal, environmental ) N Other N Drug/Latex Allergies/Reactions N Blood Transfusion N Breast Cancer N Dermatologic Disorders N Lung Disease N Defects or Inherited Disease N Breast Problem N Gestational Diabetes N Hematologic disorders N Anesthesia Complications N History of STI Y Deep Vein Thrombosis N Polycystic ovary syndrome N Anxiety Disorder Y Autoimmune disease N Arthritis N Polyps N Infertility N Acid Reflux (GERD) N History of abnormal pap Y Cancer N Varicosities N Stroke N Neurologic/Epilepsy N Endometriosis N High Cholesterol N Fibromyalgia N Headaches N Kidney Disease N Heart Problems N Thyroid Problems N Kidney or Bladder Problems N GI Problems N Eating Disorder N Anemia N Art (IVF or FET) N Psychiatric Illness N Ovarian Cancer N Diabetes N Pulmonary (TB, Asthma) N Hepatitis/Liver Disease N No Past Medical History N Eczema N Urinary Tract Infection N Abuse/Domestic Violence N Asthma N Trauma/Violence N Depression/ depression Y Heart Disease N Pre-Eclampsia N Hypertension N Osteoporosis N Thrombophilias N Gynecological History Statement/Question Response Abnormal Pap Y Date of Last Mammogram Date of LMP 09/17/2023 On BCP's at Conception? N N Was last menstrual period normal Y STIs/STDs Yes HPV Vaccine N Current Control Method Age at First Child 29 Date of Last Colonoscopy Sexually Active? Y Date of DEXA bone scan Age of first menstrual cycle 14 Date of Last Pap Smear 08/18/2022 Sexual Problems? N LMP Approximate N Obstetrics History GPAL:G 3 P 2 0 0 2 Type Value Full Term 2 Living 2 Total 3 Past Encounters Encounter ID Performer Location Encounter Start Date Encounter Closed Date Diagnosis/Indication Diagnosis SNOMED-CT Code Diagnosis ICD10 Code Diagnosis Note [id number] Conrad Villela MD [facility] [address] [address] 05/21/2024 10:51:00 05/21/2024 12:21:18 Gestation period, 35 weeks 84841247 Z3A.35 Routine an tenatal care 014528915 Z34.93 Venereal d isease screening 148927747 Z11.3 screening 2437 86990 Z36.9 Genital he rpes simplex 23587648 A60.9 [id number] Lulu Kenney CNM [facility] [address] [place] [address] 06/01/2024 10:04:54 06/01/2024 11:22:10 Gestation period, 36 weeks 36656043 Z3A.36 continue vitamin [id number] Lulu Kenney CNM [facility] [address],[place] [address] 06/06/2024 10:40:15 06/06/2024 11:42:12 Routine care 948664448 Z34.93 [id number] Lulu Kenney CNM [facility] [address],[place] [address] 06/20/2024 10:29:26 06/20/2024 12:28:43 Gestation period, 39 weeks 55917424 Z3A.39 [id number] Yari Rosenberg [facility] [address],[place] [address] 06/27/2024 10:00:55 06/27/2024 10:43:23 Post-term 84013206 O48.0 Z3A.40 [id number] Layla Shirley [facility] [address],[place] [address] 06/27/2024 10:02:50 06/29/2024 17:08:22 Post-term 93586625 O48.0 [id number] Lulu Kenney CNM [facility] [address],[place] [address] 06/27/2024 10:03:24 06/27/2024 14:01:59 Gestation period, 40 weeks 31050706 Z3A.40 Health Concerns Section Related Observation LastModified by Organization Detai ls LastModified Time None Recorded Concern Status LastModified by Organization Details LastModified Time None Recorded Advance Directives Directive N: Payers Encounter Date Sequence Insurance Name Policy Number Policy Acevedo Covered Member ID Acevedo Member ID Guarantor Name 06/06/2024 1 *SELF PAY* Gw en [employer] 06/20/2024 1 *SELF PAY* Gw en [employer] 06/27/2024 1 *SELF PAY* Gw en [employer] 06/27/2024 1 *SELF PAY* Gw en [employer] 06/27/2024 1 *SELF PAY* Gw en [place] OBGyn Episode Ob Episode Information Episode Created Date Number of Fetuses Patient Bloodtype Patient rh Status Prepregnancy Weight lbs Domestic Partner Domestic Partner Phone Father Name Machine Stonecutter Status 05/21/19 1 CLOSED Fetus Data First Name Last Name Admitted to NICU Weight (g) Sex Living Outcome Pediatric Complications Fetus ID Race Codes Race Delivery Type 3401.94 F Full Term [id number] Vaginal Delivery Asael Calculation Initial Asael Date Initial Exam Date Initial Exam Provider Initial Ultrasound Date Last Menstrual Period Date Ultra Sound Weeks Gestation 0 Eighteen To Twenty Week Asael Update Ultra Sound Date Fundal Height At Umbil Quickening Date Ultra Sound Latest Weeks Gestation Final Asael Confirmed By Final Asael Confirmed Date Final Asael Date Ultra Sound Latest Days Gestation 0 0 Menstrual History Last Menstrual Date Menses Monthly On Bcp Conception Prior Menses Frequency Hcg Plus Date Menarche Onset Age Delivery Information Delivery Date Delivery Type Labor Anesthesia Weeks Gestation Incision Type Labor Labor Length Hrs Delivered By Post Complications Tubal Sterilization Discharge Date Comments 2 40.2 hemorrha g e Discharge Information Feeding Method Contraceptive Method Maternal HG B and HCT Levels Ob Episode Information Episode Created Date Number of Fetuses Patient Bloodtype Patient rh Status Prepregnancy Weight lbs Domestic Partner Domestic Partner Phone Father Name Machine Stonecutter Status 05/21/19 25 1 O Positive 144 Azra Yarbrough OPEN Fetus Data First Name Last Name Admitted to NICU Weight (g) Sex Living Outcome Pediatric Complications Fetus ID Race Codes Race Delivery Type [id number] Problems Problem Notes Problem Name Start Date End Date Resolution Snomed Code Not e hemorrhage 40671730 X2, did not require transfusion Herpes simplex 06/06/2024 13203084 Anxiety 28582180 Asael Calculation Initial Asael Date Initial Exam Date Initial Exam Provider Initial Ultrasound Date Last Menstrual Period Date Ultra Sound Weeks Gestation 06/23/2024 12/19/2023 Dr wilson office 12/19/2023 09/17/2023 13 Eighteen To Twenty Week Asael Update Ultra Sound Date Fundal Height At Umbil Quickening Date Ultra Sound Latest Weeks Gestation Final Asael Confirmed By Final Asael Confirmed Date Final Asael Date Ultra Sound Latest Days Gestation 0 06/23/19 25 0 Pre- Flowsheet Flowsheet Date 05/21/2024 Irvin Score Blood Edema Fundus Height Fundus Units Glucose Ketones Leukocytes Nitrite Labor Signs Protein Cervic Dilation Cervic Effacement Cervic Station neg none none trace 1cm 30% -4 Type Weight in lbs Pre/Post Dialysis Refused Weight 184.597587255653 BP Diastolic BP Location Tested BP Systolic BP Type 67 113 Fetus Heart Rate Present Fetus Movement A Yes Comments this patient is a 33-year-ol d multiparous female at 35 weeks' gestation who presents for transfere of [facility] care. She has a history of term vaginal births. Her medical, surgical, obstetric history Includes hemorrhage x2, herpes, anxiety.. She is vaccinated. She was given precautions recommendations for . We talked about vaccines in , she has completed Tdap. Talked about care in detail. she will begin daily Valtrex till the end of . To check hemoglobin today. Some mention of anemia. Flowsheet Date 06/01/2024 Irvin Score Blood Edema Fundus Height Fundus Units Glucose Ketones Leukocytes Nitrite Labor Signs Protein Cervic Dilation Cervic Effacement Cervic Station neg none 37 cm Type Weight in lbs Pre/Post Dialysis Refused 183.581747169556 BP Diastolic BP Location Tested BP Systolic BP Type 67 110 Fetus Heart Rate Present A 148 Present Fetus Movement A Yes Comments Patient is having discharge. wants low intervention IOL at 41 and 40 weeks, dsicussed ton for pp hemorrhage, wants to try w/o epidural, +FM, precautions and education f/u one week Flowsheet Date 06/06/2024 Irvin Score Blood Edema Fundus Height Fundus Units Glucose Ketones Leukocytes Nitrite Labor Signs Protein Cervic Dilation Cervic Effacement Cervic Station neg none Type Weight in lbs Pre/Post Dialysis Refused 183.085598352150 BP Diastolic BP Location Tested BP Systolic BP Type 73 119 Fetus Heart Rate Present A 136 Present Fetus Movement A Yes Comments Patient is having some nause a. precautions and education, declines membrane sweep at term, +FM, doing well f/u one week Flowsheet Date 06/20/2024 Irvin Score Blood Edema Fundus Height Fundus Units Glucose Ketones Leukocytes Nitrite Labor Signs Protein Cervic Dilation Cervic Effacement Cervic Station neg none 37 cm Type Weight in lbs Pre/Post Dialysis Refused 186.686263304172 BP Diastolic BP Location Tested BP Systolic BP Type 68 111 Fetus Heart Rate Present A 145 Fetus Movement A Yes Comments Patient states that is havin g some contractions. cervix 1.5/50, did not complete membrane sweep, hand in the way, moved back after exam, +FM, declines IOL schedule testing next week Flowsheet Date 06/27/2024 Irvin Score Blood Edema Fundus Height Fundus Units Glucose Ketones Leukocytes Nitrite Labor Signs Protein Cervic Dilation Cervic Effacement Cervic Station Type Weight in lbs Pre/Post Dialysis Refused BP Diastolic BP Location Tested BP Systolic BP Type Fetus Heart Rate Present Fetus Movement Comments Flowsheet Date 06/27/2024 Irvin Score Blood Edema Fundus Height Fundus Units Glucose Ketones Leukocytes Nitrite Labor Signs Protein Cervic Dilation Cervic Effacement Cervic Station Type Weight in lbs Pre/Post Dialysis Refused Weight 189.099208834370 BP Diastolic BP Location Tested BP Systolic BP Type 76 119 Fetus Heart Rate Present Fetus Movement Comments Flowsheet Date 06/27/2024 Irvin Score Blood Edema Fundus Height Fundus Units Glucose Ketones Leukocytes Nitrite Labor Signs Protein Cervic Dilation Cervic Effacement Cervic Station neg none 3cm 80% -2 Type Weight in lbs Pre/Post Dialysis Refused 189.821904589898 BP Diastolic BP Location Tested BP Systolic BP Type 76 119 Fetus Heart Rate Present Fetus Movement A Yes Comments Patient is having contractio ns and discharge and nausea. nst R bpp /, +FM, cervix well applied, membrane sweep, precautions and education f/u iol next week if undelivered, pt declines earlier IOL, reviewed placental insufficiency possible after term Menstrual History Last Menstrual Date Menses Monthly On Bcp Conception Prior Menses Frequency Hcg Plus Date Menarche Onset Age 0509/17/2023 Delivery Information Delivery Date Delivery Type Labor Anesthesia Weeks Gestation Incision Type Labor Labor Length Hrs Delivered By Post Complications Tubal Sterilization Discharge Date Comments Discharge Information Feeding Method Contraceptive Method Maternal HG B and HCT Levels Ob Episode Information Episode Created Date Number of Fetuses Patient Bloodtype Patient rh Status Prepregnancy Weight lbs Domestic Partner Domestic Partner Phone Father Name Machine Stonecutter Status 05/21/19 25 1 CLOSED Fetus Data First Name Last Name Admitted to NICU Weight (g) Sex Living Outcome Pediatric Complications Fetus ID Race Codes Race Delivery Type 3288.54 2 F Full Term [id number] Vaginal Delivery Asael Calculation Initial Asael Date Initial Exam Date Initial Exam Provider Initial Ultrasound Date Last Menstrual Period Date Ultra Sound Weeks Gestation 0 Eighteen To Twenty Week Asael Update Ultra Sound Date Fundal Height At Umbil Quickening Date Ultra Sound Latest Weeks Gestation Final Asael Confirmed By Final Asael Confirmed Date Final Asael Date Ultra Sound Latest Days Gestation 0 0 Menstrual History Last Menstrual Date Menses Monthly On Bcp Conception Prior Menses Frequency Hcg Plus Date Menarche Onset Age Delivery Information Delivery Date Delivery Type Labor Anesthesia Weeks Gestation Incision Type Labor Labor Length Hrs Delivered By Post Complications Tubal Sterilization Discharge Date Comments 0 41 Discharge Information Feeding Method Contraceptive Method Maternal HG B and HCT Levels
[2024-07-01 02:10] LABS: Basophils Percent Auto 0.3 % (0.2-1.2); Eosinophils Absolute Auto 0.1 K/mm3 (0-0.3); Eosinophils Percent Auto 0.4 % (0-4.4); Hemoglobin 14.7 g/dL (12.0-15.0); Immature Granulocyte Absolute 0.05 K/mm3 (0.00-0.031); Immature Granulocyte Percent A 0.4 % (0-0.5); Lymphocytes Absolute Auto 2.87 K/mm3 (0.9-3.2); Lymphocytes Percent Auto 22.6 % (18.3-44.2); Mean Corpuscular HGB Conc 34.2 g/dl (32-36); Mean Corpuscular Hemoglobin 31.3 pg (26-34); Mean Corpuscular Volume 91.5 fl (80-100); Mean Platelet Volume 9.8 fl (7.4-10.4); Monocytes Absolute Auto 0.8 K/mm3 (0.1-0.6); Monocytes Percent Auto 6.5 % (2.6-8.5); Neutrophils Absolute Auto 8.8 K/mm3 (1.3-6.7); Neutrophils Percent Auto 69.8 % (45.5-73.1); Platelet Count Result 227 k/mm3 (150-375); White Blood Count 12.7 K/mm3 (4.5-10.0)
--- NOTE | 2024-07-01 02:11 | LDADM ---
This patient, Shania Yarbrough, was admitted to Labor/Delivery/Recovery 105 on 07/01/24 at 01:29. Plans for labor, pain management and were discussed with patient. Patient/family oriented to hospital policies and general routines including ID bracelet, bed and alarms, visiting hours, pain management, procedures, bathroom and other care routines, personal items, smoking policy, room service/diet and guest tray routines, security routines, and visiting hours. Patient/Family are encouraged to report perceived risks to care and to ask questions if they do not understand what they are told or what they should do. See OBIX for further documentation.
[2024-07-01] MEDS: FAMOTIDINE 20 MG/2 ML VIAL (02:24)
[2024-07-01] MEDS: ONDANSETRON INJ 4 MG/2 ML VIAL IV PUSH (02:24)
[2024-07-01] MEDS: LACTATED RINGERS 1,000 ML 125 ML IV CONT (02:26)
--- NOTE | 2024-07-01 02:43 | WPDOBADMIT ---
Obstetrics - Admit Note Admission Note: record reviewed. No pertinent additions to the history and/or any subsequent changes in the physical findings that are not consistent with the expected course of the were found. Presents in labor, regular contractions. SVE 7.5cm on admission, intact. BLE neg per RN. Expectant management. FHR category I Additions to the history and/or subsequent changes in the physical findings follow. None.
[2024-07-01 02:54] LABS: Syphilis IgG/IgM Antibody Negative (Negative)
--- NOTE | 2024-07-01 02:59 | PM.OBPNLAB ---
Pain Control Date/time seen: 07/01/24 02:59 Pain control: tolerating well Pelvic Exam Dilation (cm): 7 Effacement (%): 80 station: -2 Amniotic membrane status: Ruptured (clear fluid) Status status: Category l Assessment and Plan Assessment: active labor Plan: continuous present management
[2024-07-01 03:07] LABS: HIV 1/2 Ab P24 Ag Result Negative (Negative)
[2024-07-01] MEDS: OXYTOCIN 30 UNITS/NS 500 ML 30 UNITS/500 ML BAG 999 UNITS IV CONT (03:32)
--- NOTE | 2024-07-01 03:42 | PM.OBPRVD ---
OB - Vaginal Delivery Note Procedure Delivery date: 07/01/24 Induction method: None Delivery augmentation: Rupture of Membranes Delivery monitor: External FHT and External Uterine Route of delivery: Episiotomy description: None Specimen: No Quantitative Blood Loss (ml): 50 Anesthesia type: Epidural Disposition: Floor Complications: No immediate complications Narrative: See H&P and notes for details on patient's admission and labor. She progressed to complete cervical dilation and at the appropriate time began pushing. With adequate expulsive efforts by the mother, the baby's head was delivered without difficulty. Nuchal cord was present x1 and was easily reduced. The baby's left shoulder was anterior and delivered under the pubic symphysis without difficulty. The posterior shoulder and the rest of the baby delivered without difficulty. The umbilical cord was doubly clamped and cut after 3 min of delayed cord clamping. Care of the was then assumed by the nursing staff. Baby Date of : 07/01/24 Time of : 03:28 Gestational Age by Date: 41 gender: Female presentation: compound (vertex with right hand) position: Left Occiput Anterior Placenta delivery description: Expressed Cord Vessel Description: 3 Vessels, Nuchal Cord, Reduced and Delayed Cord Clamping
[2024-07-01] MEDS: OXYTOCIN 30 UNITS/NS 500 ML 30 UNITS/500 ML BAG 125 UNITS IV CONT (04:03)
[2024-07-01] MEDS: WITCH HAZEL 40 PADS 1 PAD TOPICAL (04:48)
[2024-07-01] MEDS: BENZOCAINE 20% AER SPR (*SP) 56 GM CAN 1 SPRAY TOPICAL (04:48)
--- NOTE | 2024-07-01 07:10 | PC.NURSE ---
Patient transferred to post room #283 via wheelchair. Support person present. Oriented to unit, room, information board, rooming in, admission packet and security measures. Patient verbalizes understanding.
[2024-07-01] MEDS: IBUPROFEN 600 MG TABLET PO ×3 (07:35→20:50)
[2024-07-01] MEDS: MULTIVIT/MIN/PREN/FOL AC/IRON TABLET 1 TAB PO (08:48)
[2024-07-01] MEDS: ACETAMINOPHEN 325 MG TABLET 650 MG PO ×2 (08:48→20:50)
[2024-07-02 00:15] VITALS: BP 111/70; PULSE 60; RESP 14; TEMP 37.1; O2SAT 100
[2024-07-02 04:47] VITALS: BP 109/69; PULSE 63; RESP 12; TEMP 36.6; O2SAT 100
[2024-07-02 04:53] LABS: Hematocrit 36.3 % (37.0-47.0); Hemoglobin 11.9 g/dL (12.0-15.0)
[2024-07-02] MEDS: MULTIVIT/MIN/PREN/FOL AC/IRON TABLET 1 TAB PO (08:12)
[2024-07-02 08:15] VITALS: BP 111/69; PULSE 64; RESP 16; TEMP 36.6; O2SAT 100
--- NOTE | 2024-07-02 10:30 | PC.NURSE ---
Consulted with mother concerning needs and she shared her ability to independently latch infant optimally without pain. Mother is feeding appropriately for growth of and understands stimulating to eat if needed. Infant has had appropriate feedings in the last 24 hours meets the outcomes for weight, output, blood sugar and jaundice at this time. Reinforced understanding of milk production, transition of milk, signs of adequate intake, transition of stool, prevention/relief of engorgement, plugged ducts, mastitis, community resources, and when to call a provider using the resource of the feeding sheet along with the mom and baby guide. Mother voiced understanding of the information shared, is confident to continue effectively her at home, when to call for assistance, denies any additional assistance or education at this time. Reported to the Primary RN.
--- NOTE | 2024-07-02 10:39 | PM.OBDSVD ---
DS: Admitting Diagnosis Discharge Date 07/02/24 Admitting Diagnosis labor DS: Discharge Diagnosis Discharge Diagnosis (1) (normal spontaneous vaginal delivery): Code(s): O80 - Encounter for full-term uncomplicated delivery Status: Acute OB - DS: Summary OB Procedures : None OB Procedures Intrapartum: Spontaneous Vag Delivery OB Procedures: : None Peripartum Data Episiotomy description: None Time Spent with Patient Time attestation: Total time spent providing and/or coordinating discharge services: DS: Data Data Completed and Pending Labs on day of discharge: Labs from last 24 hours 07/02/24 04:40 Hgb 11.9 L Hct 36.3 L Discharge Plan Discharge Attending physician on discharge: Artie Espinosa Consulting providers: Lulu Kenney Discharging Clinician: Artie Espinosa Patient Disposition: Home, Self-Care Activity: may shower, as tolerated and pelvic rest Diet: as tolerated Patient Instructions: Antibiotic Form Patient Language: Moldovan Stand Alone Forms: General Discharge Information Follow-up/Referrals: Lulu Kenney CNM [Certified Nurse Radiologist] - 5 Weeks Discharge Medications: New docusate sodium 100 mg Capsule 100 mg PO BID PRN (Reason: Constipation) Qty: 60 0RF ibuprofen 600 mg Tablet 600 mg PO Q6H PRN (Reason: Cramping) Qty: 30 0RF Continued 28-800 mg-mcg tablet 1 tablet PO DAILY ferrous sulfate [Feosol] 325 mg (65 mg iron) tablet 325 mg PO DAILY valacyclovir 500 mg tablet 500 mg PO DAILY Date of admission: 07/01/24 01:29 Primary Care Provider: PHYSICIAN,FORENSIC ANTHROPOLOGIST Admitting Provider: Conrad Villela Attending physician on admission: Conrad Villela Condition: Stable
--- NOTE | 2024-07-02 10:41 | P.PNOB_ITS ---
OB - PN: Subj Subjective Date/time seen: 07/02/24 10:41 Interval history: PPD#1 doing well, pain controlled voiding without issue ready for discharge today OB - PN: Obj Data Labs 07/02/24 04:40 Labs: Laboratory Results - last 24 hr 07/02/24 04:40 Hgb 11.9 L Hct 36.3 L OB - PN A/P Assessment and Plan (1) (normal spontaneous vaginal delivery): Code(s): O80 - Encounter for full-term uncomplicated delivery Status: Acute Plan day: 1 Plan: routine care and discharge home Time Spent With Patient Time: Total time spent is greater than 50% in coordination of care (as documented) at patient's floor/unit and/or counseling patient: Review of Systems 2 Review of Systems: All systems reviewed & are unremarkable except as noted in HPI and below Exam 2 Const: General: comfortable and no acute distress O rientation/consciousness: patient oriented x3 Resp: Effort & Inspection: normal respiratory effort
[2024-07-05 11:22] VITALS: BP 116/74; PULSE 77; RESP 18; TEMP 36.7; O2SAT 98
== END 2024-07-02 10:56 | disposition home or self-care (01) | DRG 807 ==
LOC: ANHLDR 05:20 → ANHOB2 07-02 10:39 → ANHLDR 07-04 08:56 → ANHOB2 07-04 08:56
PROVIDERS: Admitting Provider Obstetrics & Gynecology; Visit Provider Obstetrics & Gynecology
DX: O69.81X0 Labor and delivery complicated by cord around neck, without compression, not applicable or unspecified (principal); Z37.0 Single live birth; O32.6XX0 Maternal care for compound presentation, not applicable or unspecified; O70.0 First degree perineal laceration during delivery; Z3A.41 41 weeks gestation of pregnancy
CPT/HCPCS: 36415; 85014; 85018; 85025; 86593; 86703; 86850; 86900; 86901; A9270; G0432; J2405; J2590; J7120